=== PATIENT | female | born 1930 | race Caucasian/White ===

== ENCOUNTER 2017-11-22 09:44 | Inpatient (IN) ==
[2017-11-22 11:29] LABS: Basophils % 0.7 % (0.1-2.0); Eosinophils # 0.2 K/mm3 (0.0-0.4); Eosinophils % 2.7 % (0.1-12.0); Hematocrit 38.7 % (37.0-47.0); Hemoglobin 13.1 g/dL (12.2-16.2); Lymphocytes # 1.7 K/mm3 (0.7-4.5); Lymphocytes % 30.9 K/mm3 (10-50); Mean Corpuscular HGB Conc 33.9 g/dL (31.8-35.4); Mean Corpuscular Hemoglobin 29.5 pg (27.0-31.2); Mean Corpuscular Volume 87.1 fl (81-99); Mean Platelet Volume 7.2 fl (7.4-10.4); Monocytes # 0.4 K/mm3 (0.1-1.0); Monocytes % 6.9 % (1.7-9.3); Neutrophils # 3.2 K/mm3 (1.8-7.8); Neutrophils % 58.8 % (37.0-80.0); Platelet Count 224 K/mm3 (142-424); Red Blood Count 4.44 M/mm3 (4.20-5.40); Red Cell Distribution Width 13.7 % (11.5-17.5); White Blood Count 5.5 K/mm3 (4.8-10.8)
--- NOTE | 2017-11-22 11:38 | Pharmacy Consult Notes ---
[facility] Pharmacy VTE Monitoring - Patient Demographics Admission date: 11/22/17 Report Date: 11/22/17 Time: 11:38 Allergies/Adverse Reactions: Patient Allergies lactose Allergy (Verified 11/22/17 11:36) Vomiting Height: 1.75 m Weight: 68.663 kg - VTE Risk Labs: VTE Related Lab Results Hgb 13.1 g/dL (12.2-16.2) 11/22/17 11:00 Hct 38.7 % (37.0-47.0) 11/22/17 11:00 Plt Count 224 K/mm3 (142-424) 11/22/17 11:00 VTE Score: 2 Clinical Trial Participant: No - Prophylaxis VTE Prophylaxis Ordered?: Yes Types of VTE Prophylaxis: TEDS Knee High
[2017-11-22 11:42] LABS: Anion Gap 14.7 mEq/L (5-15); C-Reactive Protein 0.7 mg/L (0.0-0.9); Potassium 3.7 mmoL/L (3.5-5.1)
--- NOTE | 2017-11-22 16:40 | History & Physical Report ---
*Admission Date: 11/22/17 *Chief complaint: Dyspnea *History of present illness: 86-year-old white female with history of coronary disease, status post stenting of multiple arteries in May 2017, who came to my office this morning with a chief complaint shortness of air over the past 3 days. She noted that she had mowed her own yard 48 hours before in the next day began to have congestion and mild cough but significant shortness of air. In office she was found to have O2 saturations of 84% on room air, have tachypnea with respiratory rate of 24, crackles in the left lower lung field and occasional ectopic pulse rate. She was admitted to hospital for IV antibiotics, further diagnostic testing and oxygen supplementation. [facility] History Medical History: Reports:: Congestive Heart Failure, Coronary Artery Disease, Hyperlipidemia, Hypertension Denies:: Cancer, Diabetes Mellitus Type 1, Diabetes Mellitus Type 2, MRSA Other Medical History: Reports: Arthritis Comment: S/p [facility] with stents Laterality Cases: Bilateral: Total Knee Replacement Other Surgeries: Yes: Appendectomy, Cholecystectomy, Hysterectomy-Partial, Other Amputation: No Fractures: No - *Social History Educational Level: Completed Grade School Smoking Status: Never smoker Alcohol Intake: never Alcohol Intake Frequency:: other Substance Use Type: denies use Occupational Status: retired Housing: house Household Members: children - Psychiatric History Expresses thoughts of harming self/others: None Suicide Plan Description: No Plan *Family Hx:: Cancer, Diabetes, Hyperlipidemia, Hypertension Review of Systems - Constitutional Reports fatigue, Reports malaise, Denies anorexia, Denies body ache(s), Denies chills, Denies fever(s) - ENT Denies abnormal hearing - *Cardiovascular Reports shortness of breath, Reports shortness of breath with activity, Denies chest pain, Denies chest pain at rest, Denies generalized swelling, Denies irregular heart rhythm - *Respiratory Reports chest congestion, Reports cough, Reports shortness of breath - *Gastrointestinal Denies abdominal pain, Denies difficulty swallowing, Denies nausea - *Musculoskeletal Denies abnormal walking Meds Home Medications Medication Instructions Recorded Confirmed Type aspirin 81 mg tablet,delayed 81 mg PO DAILY 07/19/17 11/22/17 History release Atorvastatin Calcium [Lipitor 40mg 40 mg PO DAILY 11/22/17 11/22/17 History Tablet] Clopidogrel Bisulfate [Plavix 75mg 75 mg PO DAILY 11/22/17 11/22/17 History Tab] Esomeprazole Magnesium [Nexium 20 mg PO DAILY 11/22/17 11/22/17 History 24Hr] Furosemide [Furosemide 40MG tAB] 40 mg PO DAILY 11/22/17 11/22/17 History Losartan Potassium [Cozaar] 50 mg PO DAILY 11/22/17 11/22/17 History Potassium Chloride [K-Tab ER 8 mEq] 8 meq PO DAILY 11/22/17 11/22/17 History Allergies Allergy/AdvReac Type Severity Reaction Status Date / Time lactose Allergy Vomiting Verified 11/22/17 11:36 Exam Vital signs and Labs for Last 24 Hours: Temp Pulse Resp BP Pulse Ox 97.3 F L 70 20 138/67 99 11/22/17 15:54 11/22/17 15:54 11/22/17 15:54 11/22/17 15:54 11/22/17 15:54 Laboratory Results - last 24 hr 11/22/17 11:00: WBC 5.5, RBC 4.44, Hgb 13.1, Hct 38.7, MCV 87.1, MCH 29.5, MCHC 33.9, RDW 13.7, Plt Count 224, MPV 7.2 L, Neut % (Auto) 58.8, Lymph % (Auto) 30.9, [place] % (Auto) 6.9, Eos % (Auto) 2.7, Baso % (Auto) 0.7, Neut # (Auto) 3.2 , Lymph # (Auto) 1.7, [place] # (Auto) 0.4, Eos # (Auto) 0.2, Baso # (Auto) 0.0 11/22/17 11:00: Sodium 141, Potassium 3.7, Chloride 107, Carbon Dioxide 23, Anion Gap 14.7, BUN 10, Creatinine 0.71, Estimated Creat Clear 45, Estimated GFR 78, Est GFR ( Amer) 95, Glucose 114 H, Troponin I 0.02, C-Reactive Protein 0.7 11/22/17 11:00: Mycoplasma pneumon IgM Non-reactive 11/22/17 14:13: Troponin I < 0.02 I & O for Last 24 hours: Intake & Output 11/20/17 11/21/17 11/22/17 11/23/17 11:59 11:59 11:59 11:59 Intake Total 240 / 240 Balance 240 / 240 Weight 151 lb 6 oz Narrative: Patient is pleasant, alert. Obviously tachypneic with respiratory rate 24. Pulse oximetry 84% of the office. Heart rate regular with occasional ectopic beats. Abdomen soft, no edema. Lungs have crackles in the left lower lung field. Fairly good air entry however , but tachypnea noted. Oropharynx clear but slightly dry. H&P: Result - Labs Labs: Short CBC 11/22/17 Range/Units 11:00 WBC 5.5 (4.8-10.8) K/mm3 Hgb 13.1 (12.2-16.2) g/dL Hct 38.7 (37.0-47.0) % Plt Count 224 (142-424) K/mm3 BMP 11/22/17 11:00 Sodium 141 Potassium 3.7 Chloride 107 Carbon Dioxide 23 BUN 10 Creatinine 0.71 Glucose 114 H Cardiac Enzymes 11/22/17 11/22/17 Range/Units 11:00 14:13 Troponin I 0.02 < 0.02 (0.00-0.06) ng/ml Assessment and Plan (1) Dyspnea Current visit: Yes Status: Acute Category: Medical Code(s): R06.00 - Dyspnea, unspecified (2) Hypoxia Current visit: Yes Status: Acute Category: Medical Code(s): R09.02 - Hypoxemia - Assessment and plan all Dx Assessment and Plan for all problems:: Will be to admit to hospital. Supplemental oxygen, labs. Chest x-ray. Begin community acquired pneumonia protocol because of crackles on lung field. Cautious hydration.
[2017-11-23 07:32] VITALS: BP 129/72
--- NOTE | 2017-11-23 08:02 | Discharge Summary ---
General - General Admission date:: 11/22/17 Discharge date: 11/23/17 HPI HPI: 86-year-old white female with history of coronary disease, status post stenting of multiple arteries in May 2017, who came to my office this morning with a chief complaint shortness of air over the past 3 days. She noted that she had mowed her own yard 48 hours before in the next day began to have congestion and mild cough but significant shortness of air. In office she was found to have O2 saturations of 84% on room air, have tachypnea with respiratory rate of 24, crackles in the left lower lung field and occasional ectopic pulse rate. She was admitted to hospital for IV antibiotics, further diagnostic testing and oxygen supplementation. Hospital Course Hospital Course: She was admitted, supplemental oxygen but her hypoxia improved very nicely and she was able to be weaned off. Chest x-ray was clear. Labs were unremarkable including serial troponins, d-dimer, white count and electrolytes. Patient's EKG was unremarkable. Patient was treated with antibiotics for rhonchi in her chest consistent with a bronchitis. She also seem to have a significant concomitant anxiety disorder that improved nicely. This morning she was doing well. Plan will be to discharge home. She does complain of neuropathy symptoms. We will treat this with low-dose nightly gabapentin Objective Vital signs: Temp Pulse Resp BP Pulse Ox 98.8 F 64 18 129/72 98 11/23/17 07:31 11/23/17 07:31 11/23/17 07:31 11/23/17 07:31 11/23/17 07:31 Narrative: Was not, talkative, oriented 3. Lungs have rhonchi in the left chest but slightly improved. Oropharynx clear, heart rate regular without murmurs. O2 saturations are normal on room air. Results Labs on day of discharge: Labs from last 24 hours 11/22/17 11/22/17 11/22/17 17:12 17:12 14:13 WBC RBC Hgb Hct MCV MCH MCHC RDW Plt Count MPV Neut % (Auto) Lymph % (Auto) [place] % (Auto) Eos % (Auto) Baso % (Auto) Neut # (Auto) Lymph # (Auto) [place] # (Auto) Eos # (Auto) Baso # (Auto) D-Dimer 195 Sodium Potassium Chloride Carbon Dioxide Anion Gap BUN Creatinine Estimated Creat Clear Estimated GFR Est GFR ( Amer) Glucose Troponin I 0.02 < 0.02 C-Reactive Protein Mycoplasma pneumon IgM 11/22/17 11/22/17 11/22/17 11:00 11:00 11:00 WBC 5.5 RBC 4.44 Hgb 13.1 Hct 38.7 MCV 87.1 MCH 29.5 MCHC 33.9 RDW 13.7 Plt Count 224 MPV 7.2 L Neut % (Auto) 58.8 Lymph % (Auto) 30.9 [place] % (Auto) 6.9 Eos % (Auto) 2.7 Baso % (Auto) 0.7 Neut # (Auto) 3.2 Lymph # (Auto) 1.7 [place] # (Auto) 0.4 Eos # (Auto) 0.2 Baso # (Auto) 0.0 D-Dimer Sodium 141 Potassium 3.7 Chloride 107 Carbon Dioxide 23 Anion Gap 14.7 BUN 10 Creatinine 0.71 Estimated Creat Clear 45 Estimated GFR 78 Est GFR ( Amer) 95 Glucose 114 H Troponin I 0.02 C-Reactive Protein 0.7 Mycoplasma pneumon IgM Non-reactive DS: Diagnosis - Discharge Diagnosis (1) Dyspnea Status: Acute (2) Hypoxia Status: Acute (3) Peripheral neuropathy Status: Acute Discharge Plan - Patient Discharge Instructions ACTIVITY: Continue current activity DIET: continue same diet - Follow up Plan Follow up with: Theo Park MD [Primary Care Provider] - 11/29/17 Disposition: Home, Self-[facility] Medications: Home Medications Medication Instructions Recorded Confirmed Type aspirin 81 mg tablet,delayed 81 mg PO DAILY 07/19/17 11/22/17 History release Atorvastatin Calcium [Lipitor 40mg 40 mg PO DAILY 11/22/17 11/22/17 History Tablet] Clopidogrel Bisulfate [Plavix 75mg 75 mg PO DAILY 11/22/17 11/22/17 History Tab] Esomeprazole Magnesium [Nexium 20 mg PO DAILY 11/22/17 11/22/17 History 24Hr] Furosemide [Furosemide 40MG tAB] 40 mg PO DAILY 11/22/17 11/22/17 History Losartan Potassium [Cozaar] 50 mg PO DAILY 11/22/17 11/22/17 History Potassium Chloride [K-Tab ER 8 mEq] 8 meq PO DAILY 05/15/18 05/15/18 History Prescriptions/Medication Reconciliation: New Gabapentin [Gabapentin 100mg Cap] 100 mg PO HS #30 cap Azithromycin [Zithromax 250mg tab] 250 mg PO DIRECTED #6 tab Continue aspirin 81 mg tablet,delayed release 81 mg PO DAILY Potassium Chloride [K-Tab ER 8 mEq] 8 meq PO DAILY Esomeprazole Magnesium [Nexium 24Hr] 20 mg PO DAILY Atorvastatin Calcium [Lipitor 40mg Tablet] 40 mg PO DAILY Furosemide [Furosemide 40MG tAB] 40 mg PO DAILY Losartan Potassium [Cozaar] 50 mg PO DAILY Clopidogrel Bisulfate [Plavix 75mg Tab] 75 mg PO DAILY
--- NOTE | 2017-11-25 17:11 | Cardiology Report ---
PROCEDURE: 2-D M-mode and color Doppler study INDICATIONS FOR THE TEST: Chest pain COPD Heart Murmur Tobacco Smoking Palpitations Fatigue Syncope Edema + Hypertension+Diabetes Mellitus Rheumatic Fever SOB+MARISCAL Obesity Hyperlipidemia+ Family History HD Additional History STENTS PATIENT INFORMATION HEIGHT: 69 WEIGHT:151 GENDER: Female B/P: 2-D/M-MODE INTERPRETATION: 2-D MEASUREMENTS OBSERVED VALUES IN CMS Right Ventricular Dimension (RVDd) 2.8 Interventricular Septum (Thickness)(IVsd) 1.5 Left Ventricular Internal Dimensions(LVIDd) 3.1 Left Ventricular Posterior Wall (Thickness)(LVPWd) 1.1 Aortic Root 3.7 Aortic Cusp Separation 1.7 Left Atrial Dimensions (LAD) 4.4 2D 1. Left atrium is mildly enlarged, left ventricle is normal size, there is mild concentric left ventricular hypertrophy, visually estimated ejection fraction 55% with no obvious regional wall motion abnormality. 2. The right atrium and right ventricle are mildly enlarged with normal contractility. 3. The aortic valve is thickened and calcified leaflet continue to display mobility. 4. The mitral and tricuspid valve leaflets are minimally thickened. 5. The pulmonic valve is poorly visualized. 6. No significant pericardial effusion noted. DOPPLER INTERROGATION: Doppler interrogation of the aortic, mitral and tricuspid valvular presence of mild mitral and tricuspid regurgitation, calculated right ventricular systolic pressure is 42 mmHg consistent with moderate pulmonary hypertension, grade 1 diastolic dysfunction seen with tissue Doppler evidence of raised left atrial pressure. CONCLUSION: 1. Mildly enlarged left atrium, normal left ventricular size, mild concentric left ventricular hypertrophy, visually estimated ejection fraction 55% with no obvious regional wall motion abnormality, grade 1 diastolic dysfunction seen with tissue Doppler evidence of raised left atrial pressure. 2. Thickened and calcified aortic valve without significant aortic stenosis aortic insufficiency. 3. Mild mitral and tricuspid regurgitation, calculated right ventricular systolic pressure is 42 mmHg consistent with moderate pulmonary hypertension. 4. No significant pericardial effusion noted.
== END 2017-11-23 09:59 | disposition home or self-care (01) ==
LOC: 2ND 10:17
PROVIDERS: ADMIT Internal Medicine Adolescent Medicine; ATTEND Internal Medicine Adolescent Medicine